=== PATIENT | female | born 1965 | race Two or more races ===

== ENCOUNTER 2020-11-21 11:05 | Emergency (ER) | payer OTHER ==
[2020-11-21] MEDS ORDERED: SODIUM CHLORIDE 0.9% 500 ML INFUS.BAG IV ONE (12:27)
[2020-11-21] MEDS ORDERED: ACETAMINOPHEN 1000 MG/100 ML VIAL (NON FORMULARY) IVPB ONE (12:27)
[2020-11-21] MEDS ORDERED: METOCLOPRAMIDE HCL INJECTION 10 MG/2 ML VIAL IVPB ONE (12:27)
[2020-11-21 12:32] VITALS: BMI 23.3
[2020-11-21] MEDS ORDERED: ACETAMINOPHEN INJECTION 100 ML IVPB ONE (13:36)
[2020-11-21] MEDS ORDERED: METOCLOPRAMIDE HCL INJECTION 10 MG/2 ML VIAL ONE (13:36)
[2020-11-21 13:57] LABS: BASO % 1.6 % (0-2.0); EOS % 0.1 % (0-4.5); HEMOGLOBIN 12.2 GM/dl (10.7-15.3); LYMPH % 17.8 % (8-40); MCH 29.4 pg (25.7-33.7); MCHC 33.1 g/dl (32.0-36.0); MEAN CELL VOLUME 88.8 fl (80-96); MONO % 4.3 % (3.8-10.2); NEUT % 76.2 % (42.8-82.8); PLATELET COUNT 417 10^3/uL (134-434); RBC 4.16 M/mm3 (3.60-5.2); RDW 13.5 % (11.6-15.6); WHITE BLOOD COUNT 8.2 K/mm3 (4.0-10.8)
[2020-11-21 14:30] LABS: ALBUMIN 3.6 g/dl (3.4-5.0); BILIRUBIN,TOTAL 0.8 mg/dl (0.2-1); CALCIUM 8.3 mg/dl (8.5-10); CREATININE 0.6 mg/dl (0.55-1.3); TOT PROT 7.7 g/dl (6.4-8.2)
[2020-11-21 14:36] LABS: EPITHELIAL CELLS FEW /hpf
[2020-11-21 15:30] VITALS: BP 131/71; PULSE 84; TEMP 98.3
== END 2020-11-21 15:38 | disposition home or self-care (01) ==
LOC: FER 11:05
PROC: 3E0333Z Introduction of Anti-inflammatory into Peripheral Vein, Percutaneous Approach (ICD-10-PCS; principal; 2020-11-21)
PROC: 3E033GC Introduction of Other Therapeutic Substance into Peripheral Vein, Percutaneous Approach (ICD-10-PCS; 2020-11-21)
DX: N95.0 Postmenopausal bleeding (principal); R53.1 Weakness; R51.9 Headache, unspecified
CPT/HCPCS: 36415; 76830-TC; 80053; 81003; 81015; 85025; 87077; 87086; 99284-25; J0131

== ENCOUNTER 2021-09-30 17:25 | Emergency (ER) | payer OTHER ==
[2021-09-30 17:39] VITALS: BP 153/81; PULSE 87; TEMP 97.4; BMI 23.3
[2021-09-30] MEDS ORDERED: IBUPROFEN 600 MG TABLET (FP) PO ONE ×2 (18:02→18:22)
[2021-09-30] MEDS ORDERED: ACETAMINOPHEN 500 MG TABLET (FP) PO ONE (18:02)
[2021-09-30] MEDS ORDERED: LIDOCAINE 5% TOPICAL PATCH TP ONE (18:02)
[2021-09-30] MEDS ORDERED: METHOCARBAMOL 750 MG TAB PO ONE (18:15)
[2021-09-30] MEDS ORDERED: ACETAMINOPHEN 500 MG TABLET (FP) ONE (18:21)
[2021-09-30] MEDS ORDERED: LIDOCAINE 5% TOPICAL PATCH ONE (18:22)
[2021-09-30] MEDS ORDERED: METHOCARBAMOL 500 MG TABLET ONE (18:22)
[2021-09-30] MEDS ORDERED: LIDOCAINE PATCH REMOVAL MC SCH (22:00)
== END 2021-09-30 18:50 | disposition home or self-care (01) ==
LOC: FER 17:25
DX: M54.50 Low back pain, unspecified (principal); V43.62XA Car passenger injured in collision with other type car in traffic accident, initial encounter
CPT/HCPCS: 99283-25

== ENCOUNTER 2023-03-24 12:04 | Emergency (ER) | payer OTHER ==
[2023-03-24 12:22] VITALS: BP 155/84; PULSE 86; RESP 16; TEMP 97.8; BMI 23.3
== END 2023-03-24 13:50 | disposition home or self-care (01) ==
LOC: FER 12:04
DX: Z48.02 Encounter for removal of sutures (principal)
CPT/HCPCS: 99282-25